=== PATIENT | female | born 1985 | race Two or more races ===

== ENCOUNTER 2025-04-10 14:15 | Emergency (ER) | payer MEDICAID, SELFPAY ==
[2025-04-10 14:17] VITALS: BMI 26.9
--- NOTE | 2025-04-10 14:23 | EKG_ITS ---
[facility] Test Date: 2025-04-10 Pat Name: BELLA FARRAR Department: Room: - Gender: Female [employer]: : 1985 Requested By: Gregg Bolivar Order Number: [id number] Reading MD: Gregg Bolivar Measurements Intervals [place] Rate: 68 P: 27 MS: 110 QRS: 0 QRSD: 82 T: 20 QT: 398 QTc: 424 Interpretive Statements SINUS RHYTHM WITH SHORT MS INTERVAL LOW QRS VOLTAGE IN PRECORDIAL LEADS [QRS DEFLECTION < 1.0 mV IN CHEST LEADS] POSSIBLE SEPTAL MYOCARDIAL INFARCTION , PROBABLY OLD [30 ms Q WAVE IN V1/V2] No previous ECG available for comparison /[id number]/[email or web address]/[id number].pdf
[2025-04-10 14:28] VITALS: BP 154/78; PULSE 71; RESP 18; TEMP 37; O2SAT 97
--- NOTE | 2025-04-10 14:40 | XR_ITS ---
EXAMINATION: PA lateral chest 2 views TECHNIQUE: 1. Upright PA lateral chest 2 views Date and time: April 10, 2025, 1445 hours INDICATIONS: Left-sided chest pain today. FINDINGS: No significant cardiac enlargement. No pneumonia or pulmonary edema. The osseous factors are intact. IMPRESSION: No active disease
--- NOTE | 2025-04-10 14:41 | PD.EDRME ---
Rapid Medical Screening Exam [facility] Arrival date/time: 04/10/25 14:15 39-year-old female with no known medical history presents to the emergency room with a chief complaint of 9 out of 10 sternal chest pain that radiates down her left arm causing numbness and tingling as well as her left lower extremity x 1 day I have greeted and performed a focused initial assessment of this patient. A comprehensive ED assessment and evaluation of the patient, analysis of all test results, and completion of the medical decision making process will be conducted by additional ED providers. Chief Complaint: Chest Pain Time Seen by Provider: 04/10/25 14:25 Vital signs: Vital Signs Temperature 98.6 F 04/10/25 14:28 Pulse Rate 71 04/10/25 14:28 Respiratory Rate 18 04/10/25 14:28 Blood Pressure 154/78 H 04/10/25 14:28 Pulse Oximetry (%) 97 04/10/25 14:28 Oxygen Delivery Method Room Air 04/10/25 14:28 Vital signs reviewed by provider: No Exam: The patient has clear bilateral lung sounds The patient has a strong and regular rhythm S1 and S2 noted no clicks no murmurs no JVD Clinical Impression: Chest pain/costochondritis/STEMI/NSTEMI/pneumonia
[2025-04-10 15:13] LABS: Basophils # (Auto) 0.0 Thou/mm3 (0.0-0.2); Basophils % (Auto) 1 % (0-2.5); Eosinophils # (Auto) 0.1 Thou/mm3 (0.0-0.5); Eosinophils % (Auto) 2 % (0-10); Hematocrit 27.2 % (36.0-46.0); Immature Granulocytes Auto 0.01 Thou/mm3 (0.00-0.00); Lymphocytes # (Auto) 1.7 Thou/mm3 (1.0-4.8); Lymphocytes % (Auto) 32 % (10-50); Mean Corpuscular HGB Conc 26.8 g/dl (31.0-37.0); Mean Corpuscular Hemoglobin 16.9 pg (25.0-35.0); Mean Corpuscular Volume 63 fL (80-100); Monocytes # (Auto) 0.3 Thou/mm3 (0.0-0.8); Monocytes % (Auto) 7 % (0-12); Neutrophils # (Auto) 3.1 Thou/mm3 (1.8-7.7); Neutrophils % (Auto) 59 % (37-80); Nucleated Red Blood Cell # 0.00 Thou/mm3 (0.00-0.00); Nucleated Red Blood Cell % 0 /100 WBC (0); Platelet Count 312 Thou/mm3 (140-440); RDW Standard Deviation 39.1 fL (36.4-46.3); Red Blood Count 4.33 Miln/mm3 (4.00-5.20); White Blood Count 5.2 Thou/mm3 (3.6-11.0)
[2025-04-10 15:24] LABS: Hemoglobin 7.3 g/dL (12.0-16.0)
[2025-04-10 15:26] LABS: B-Type Natriuretic Peptide 20 pg/mL (0-100)
[2025-04-10 15:27] LABS: Alanine Aminotransferase 16 U/L (10-49); Albumin, Serum 4.9 gm/dL (3.5-5.0); Albumin/Globulin Ratio 1.6 (1.2-2.2); Alkaline Phosphatase 94 U/L (46-116); Anion Gap 8 (7-16); Aspartate Amino Transferase 21 U/L (0-34); BUN/Creatinine Ratio 10 Ratio (12-20); Bilirubin,Total 0.4 mg/dL (0.3-1.2); Blood Urea Nitrogen 7 mg/dL (9-23); Calcium 9.5 mg/dL (8.3-10.6); Calcium (Corrected) 9.5 mg/dL (8.5-10.1); Carbon Dioxide 26.6 mMol/L (20.0-31.0); Chloride 107 mMol/L (98-107); Creatinine (Component) 0.7 mg/dL (0.6-1.3); Estimated Creatinine Clearance 93.0 mL/min (>60); Globulin 3.1 gm/dL (2.3-3.5); Glucose 95 mg/dL (74-106); Magnesium 2.2 mg/dL (1.6-2.6); Osmolality,Calculated 281 (275-295); Potassium 3.6 mMol/L (3.4-5.1); Sodium 142 mMol/L (136-145); Total Protein 8.0 gm/dL (5.7-8.2); Troponin I < 0.020 ng/mL (0.0-0.045); eGFR > 60 See Note
[2025-04-10 15:28] LABS: INR 1.0 (0.9-1.3); Partial Thromboplastin Time 26.3 Seconds (22.0-36.0); Prothrombin Time 10.6 Seconds (9.0-12.2)
[2025-04-10 15:42] LABS: Collection Type, Urine Clean Catch
[2025-04-10 16:11] LABS: Bilirubin,Urine Negative (Negative); Blood,Urine Negative (Negative); Clarity,Urine Clear (Clear/Hazy); Color,Urine Lt-Yellow (Lt Yel-Yel); Culture Indicated,Urine Not Indicated; Glucose, Urine Negative (Negative); Ketones,Urine Negative (Negative); Leukocyte Esterase,Urine Positive (Negative); Nitrite,Urine Negative (Negative); PH,Urine 6.5 (5.0-7.0); Protein,Urine Negative (Neg - Trace); RBC,Urine 1 /hpf (0-3); Specific Gravity,Urine 1.007 (1.001-1.035); Squamous Epithelial Cell,Urine 2 /hpf (0-5); Urobilinogen,Urine Negative mg/dL (0.0-1.0); WBC,Urine 5 /hpf (0-5)
--- NOTE | 2025-04-10 17:10 | PD.EDADULT ---
ED General RME/HPI General Chief complaint: Chest Pain Stated complaint: LEFT CHEST PAIN, SOB Time Seen by Provider: 04/10/25 14:25 Arrival date/time: 04/10/25 14:15 CC: Chest pain with radiation of left arm onset 1 day ago worsening with moving her arm and recent reproducible with palpation no prior history of similar events no OTC medicines taken. Local pain is 5-6 on a 10 scale. RME / HPI RME / HPI narrative: 04/10/25 14:15 39-year-old female with no known medical history presents to the emergency room with a chief complaint of 9 out of 10 sternal chest pain that radiates down her left arm causing numbness and tingling as well as her left lower extremity x 1 day I have greeted and performed a focused initial assessment of this patient. A comprehensive ED assessment and evaluation of the patient, analysis of all test results, and completion of the medical decision making process will be conducted by additional ED providers. Exam: The patient has clear bilateral lung sounds The patient has a strong and regular rhythm S1 and S2 noted no clicks no murmurs no JVD Impression: Chest pain/costochondritis/STEMI/NSTEMI/pneumonia Related Data Previous Rx's ?Medication ?Instructions ?Recorded meloxicam 7.5 mg tablet 7.5 mg PO QDAY #10 tabs 04/10/25 Allergies Allergy/AdvReac Type Severity Reaction Status Date / Time No Known Allergies Allergy Verified 04/10/25 17:19 Past Medical History Social History SMOKING STATUS: Never smoker ED Exam Narrative Physical exam: [General: In mild discomfort but not in any acute distress Head normocephalic HEENT: Eyes pupils are PERRLA EOMs are intact, conjunctiva is blanched, mouth pink moist membranes within acceptable limits Neck is supple nontender Chest equal chest rise nontender to palpation Respiratory: Clear to auscultation no wheezes crackles or rubs CV: Rate rhythm is regular no murmurs rubs or clicks Abdomen is distended secondary to body habitus soft nontender no masses positive bowel sounds all 4 quadrants Back: No CVA tenderness no spinous process tenderness from cervical spine thoracic and lumbar spine Skin: Pale, intact no petechiae rash induration ulceration or crepitus Extremities: Moving all extremity against resistance cap refill less than 2 seconds neurosensory intact Neuro: Awake alert oriented x3 Glascow coma 15 no focal deficits] Course Course Course Narrative: Patient's pain is easily reproducible in the costosternal border, also noted the patient's hemoglobin is 7 with a more in-depth interview as determined the patient has heavy menses for years is never followed up on it. When asked if she is chronically tired and fatigued she nods yes. I suspect this is secondary to her chronic anemia. Patient advised to follow-up with [facility] [employer] [employer] [facility] to help minimize heavy menses that she is suffering from. Quality Measures none Orders Category Date Time Status EKG (ED ONLY) *Do not use* NOW Care 04/10/25 14:23 Completed EKG (ED Only) Stat Exams 04/10/25 14:23 Draft XR chest 2V Stat Exams 04/10/25 14:40 Completed B-Type Natriuretic Peptide Stat Lab 04/10/25 15:00 Completed CBC Stat Lab 04/10/25 15:00 Completed Comprehensive Metabolic Panel Stat Lab 04/10/25 15:00 Completed Magnesium Stat Lab 04/10/25 15:00 Completed Partial Thromboplastin Time Stat Lab 04/10/25 15:00 Completed Prothrombin Time with INR Stat Lab 04/10/25 15:00 Completed Troponin I Stat Lab 04/10/25 15:00 Completed Urinalysis, C/S if Indicated Stat Lab 04/10/25 15:10 Completed Ketorolac Inj [Toradol Inj] Med 04/10/25 17:11 Once 15 mg IM X1 ONE Vital Signs Vital signs: Vital Signs Temperature 98.6 F 04/10/25 14:28 Pulse Rate 71 04/10/25 14:28 Respiratory Rate 18 04/10/25 14:28 Blood Pressure 154/78 H 04/10/25 14:28 Pulse Oximetry (%) 97 04/10/25 14:28 Oxygen Delivery Method Room Air 04/10/25 14:28 Discharge Plan Plan Patient Disposition: HOME (Self Care) Patient condition on transfer: Stable Prescriptions/Referrals Prescriptions/Med Rec: New meloxicam 7.5 mg tablet 7.5 mg PO QDAY Qty: 10 0RF Referrals: Francisco Hurd PA-C [Primary Care Provider] - In 1 week Problem List Clinical Impression: Costochondritis, Anemia Patient/Caregiver Discharge Instructions Other Activity Instructions:: Eat plenty of greens follow-up with the [facility] [employer] [facility] or your primary care doctor for your anemia. If there is worsening of symptoms return the emergency room meetly for further evaluation. Education Materials: Anemia, Costochondritis Print Language: Persian Stand Alone Forms: Karyn Award Info., Patient Portal Info Letter MDM Clinical Information Provided by: patient Medical Records reviewed [facility] Meds/Rx considered, not ordered None Labs/Rad/Tests considered, not ordered None Labs Labs: interpreted by me Lab(s) Interpretation(s): CBC shows no leukocytosis H&H of 7.3 and 27.2 with normal platelets. CMP shows no significant electrolyte imbalances renal impairment transaminitis or T. bili elevation Coags within acceptable limits Urine is unremarkable Imaging Imaging interpretation: interpreted by me Imaging Interpretation(s): Chest x-ray is unremarkable for any acute finding. Medication Administration(s) none Diagnosis Differential Diagnosis ED Complaint MDM: Costochondritis ACS MO
[2025-04-10] MEDS: KETOROLAC INJ 30 MG/ML VIAL 15 MG IM (17:28)
[2025-04-10 21:31] LABS: Path Review Blood Smear Sent to Pathologist
== END 2025-04-10 17:36 | disposition home or self-care (01) ==
PROVIDERS: Nurse Practitioner Family; Emergency Provider Family Medicine; PCP Physician Assistant Medical
DX: M94.0 Chondrocostal junction syndrome [Tietze] (principal); D64.9 Anemia, unspecified
CPT/HCPCS: 36415; 71046; 80053; 81001; 83735; 83880; 84484; 85025; 85610; 85730; 93005; 96372; 99283; J1885

== ENCOUNTER 2025-04-25 16:42 | Emergency (ER) | payer MEDICAID, SELFPAY ==
[2025-04-25 16:59] VITALS: BP 124/83; PULSE 79; RESP 16; TEMP 37; O2SAT 99; BMI 30.8
--- NOTE | 2025-04-25 17:21 | PD.EDADULT ---
ED General RME/HPI General Chief complaint: General Adult/Misc Complain Stated complaint: sent by pmd for anemia,headache, nausea Time Seen by Provider: 04/25/25 17:00 Arrival date/time: 04/25/25 16:42 CC: Headache anemia HPI patient presents to the ER via POV referred from a doctor who states the patient has been significantly anemic. Patient was seen here in March and diagnosed with anemia and told to follow-up with her primary care doctor, she did follow-up, and was placed on iron pills however her hemoglobin continues to drop. Patient also complaining of 15 days of a headache. No OTC medicines taken mild light sensitivity mild nausea without vomiting. Patient is awake alert oriented nontoxic-appearing not in any acute distress but in mild discomfort. Related Data Previous Rx's ?Medication ?Instructions ?Recorded meloxicam 7.5 mg tablet 7.5 mg PO QDAY #10 tabs 04/10/25 meloxicam 7.5 mg tablet 7.5 mg PO QDAY #10 tabs 04/25/25 Allergies Allergy/AdvReac Type Severity Reaction Status Date / Time No Known Allergies Allergy Verified 04/25/25 16:48 Review of Systems Review of Systems Narrative Review of Systems: GEN: No fever, no chills, no weight loss EYES: No discharge, no visual changes, no pain HEENT: No ear pain, no congestion, no sore throat PULM: No shortness of breath, no cough, no congestion CV: No chest pain, no dyspnea on exertion, no palpitations GI: No nausea, no vomiting, no diarrhea, no pain, no constipation : No frequency, no urgency, no dysuria MUSC/SKEL: No joint pain, no back pain SKIN: No rash PSYCH: No hallucinations, no depression HEME/LYMPH: No easy bleeding or bruising tendencies NEURO: No weakness, no headache Past Medical History Social History SMOKING STATUS: Never smoker ED Exam Narrative Physical exam: [General: Not in any acute distress Head normocephalic HEENT: Within acceptable limits Neck is supple nontender Chest equal chest rise nontender to palpation Respiratory: Clear to auscultation no wheezes crackles or rubs CV: Rate rhythm is regular no murmurs rubs or clicks Abdomen is soft nontender no masses positive bowel sounds all 4 quadrants Back: No CVA tenderness no spinous process tenderness from cervical spine thoracic and lumbar spine Skin: Pale, intact no petechiae rash induration ulceration or crepitus Extremities: Moving all extremity against resistance cap refill less than 2 seconds neurosensory intact Neuro: Awake alert oriented x3 Glascow coma 15 no focal deficits] Course Quality Measures none Orders Category Date Time Status Saline [Insert IV] NOW Care 04/25/25 17:15 Completed CBC Stat Lab 04/25/25 17:27 Completed CMP [Comprehensive Metabolic Panel] Stat Lab 04/25/25 17:27 Completed Type and Screen Stat Lab 04/25/25 17:27 Completed Acetaminophen Tab [Tylenol Tab] Med 04/25/25 17:20 Discontinued 650 mg PO X1 ONE Vital Signs Vital signs: Vital Signs Temperature 98.6 F 04/25/25 16:59 Pulse Rate 79 04/25/25 16:59 Respiratory Rate 16 04/25/25 16:59 Blood Pressure 124/83 04/25/25 16:59 Pulse Oximetry (%) 99 04/25/25 16:59 Oxygen Delivery Method Room Air 04/25/25 16:59 Discharge Plan Plan Patient Disposition: HOME (Self Care) Patient condition on transfer: Stable Prescriptions/Referrals Prescriptions/Med Rec: New meloxicam 7.5 mg tablet 7.5 mg PO QDAY Qty: 10 0RF No Action meloxicam 7.5 mg tablet 7.5 mg PO QDAY Qty: 10 0RF Referrals: Tereza Powell [employer] [Primary Care Provider] - In 1 week Problem List Clinical Impression: Headache, Anemia Patient/Caregiver Discharge Instructions Other Activity Instructions:: Continue to take the iron pills as prescribed follow-up with your primary care doctor. If you have heavy vaginal bleeding follow-up with the emergency room or follow-up with your primary care doctor for referral to [facility]. Take the medications prescribed for headaches. Education Materials: Anemia, Iron Supplements, Self-Care for Headaches Print Language: Kazakh Stand Alone Forms: Karyn Award Info., Work/School Release, Patient Portal Info Letter EVELYN/ANN MARIE Supervising Physician EVELYN/ANN MARIE Supervising Physician: Varghese Nickerson ENP [facility] Clinical Information Provided by: patient Medical Records reviewed [facility] Meds/Rx considered, not ordered None Labs/Rad/Tests considered, not ordered None Describe: CBC shows hemoglobin of 7.8. This is an improvement from 2 weeks ago when it was 7.3. No thrombocytopenia CMP shows no significant electrolyte imbalances renal impairment transaminitis or T. bili elevation. Chronic Illness/Social Conditions Explain: Newly diagnosed with anemia EKG EKG not done Labs Labs: interpreted by me Medication Administration(s) Medication Administration History Discontinued Medications Acetaminophen (Acetaminophen 325 Mg Tablet) 650 mg PO X1 ONE Stop: 04/25/25 17:21 Last Admin: 04/25/25 17:27 Dose: 650 mg Documented By: MARINO
[2025-04-25] MEDS: ACETAMINOPHEN 325 MG TABLET 650 MG PO (17:27)
[2025-04-25 17:33] LABS: Basophils # (Auto) 0.1 Thou/mm3 (0.0-0.2); Basophils % (Auto) 1 % (0-2.5); Eosinophils # (Auto) 0.2 Thou/mm3 (0.0-0.5); Eosinophils % (Auto) 3 % (0-10); Hematocrit 27.7 % (36.0-46.0); Immature Granulocytes Auto 0.03 Thou/mm3 (0.00-0.00); Lymphocytes # (Auto) 2.0 Thou/mm3 (1.0-4.8); Lymphocytes % (Auto) 32 % (10-50); Mean Corpuscular HGB Conc 28.2 g/dl (31.0-37.0); Mean Corpuscular Hemoglobin 18.5 pg (25.0-35.0); Mean Corpuscular Volume 66 fL (80-100); Monocytes # (Auto) 0.4 Thou/mm3 (0.0-0.8); Monocytes % (Auto) 7 % (0-12); Neutrophils # (Auto) 3.5 Thou/mm3 (1.8-7.7); Neutrophils % (Auto) 57 % (37-80); Nucleated Red Blood Cell # 0.00 Thou/mm3 (0.00-0.00); Nucleated Red Blood Cell % 0 /100 WBC (0); Platelet Count 251 Thou/mm3 (140-440); RDW Standard Deviation 40.0 fL (36.4-46.3); Red Blood Count 4.21 Miln/mm3 (4.00-5.20); White Blood Count 6.2 Thou/mm3 (3.6-11.0)
[2025-04-25 17:36] LABS: Hemoglobin 7.8 g/dL (12.0-16.0)
[2025-04-25 17:49] LABS: Alanine Aminotransferase 14 U/L (10-49); Albumin, Serum 4.9 gm/dL (3.5-5.0); Albumin/Globulin Ratio 1.7 (1.2-2.2); Alkaline Phosphatase 94 U/L (46-116); Anion Gap 10 (7-16); Aspartate Amino Transferase 21 U/L (0-34); BUN/Creatinine Ratio 13 Ratio (12-20); Bilirubin,Total 0.3 mg/dL (0.3-1.2); Blood Urea Nitrogen 9 mg/dL (9-23); Calcium 9.5 mg/dL (8.3-10.6); Calcium (Corrected) 9.5 mg/dL (8.5-10.1); Carbon Dioxide 23.9 mMol/L (20.0-31.0); Chloride 107 mMol/L (98-107); Creatinine (Component) 0.7 mg/dL (0.6-1.3); Estimated Creatinine Clearance 94.4 mL/min (>60); Globulin 2.9 gm/dL (2.3-3.5); Glucose 105 mg/dL (74-106); Osmolality,Calculated 279 (275-295); Potassium 3.6 mMol/L (3.4-5.1); Sodium 141 mMol/L (136-145); Total Protein 7.8 gm/dL (5.7-8.2); eGFR > 60 See Note
== END 2025-04-25 18:15 | disposition home or self-care (01) ==
PROVIDERS: Registered Nurse General Practice; Emergency Provider Emergency Medicine; PCP Nurse Practitioner Family
DX: D64.9 Anemia, unspecified (principal); R51.9 Headache, unspecified
CPT/HCPCS: 36415; 80053; 85025; 86850; 86900; 86901; 99282; A9270